=== PATIENT | female | born 1935 | race Caucasian/White ===

== ENCOUNTER 2024-05-15 22:31 | Emergency (ER) | payer OTHER, MEDICAID ==
[~2024-05-15] VITALS: Ht 157.5 cm; Wt 59.0 kg
[2024-05-15 22:31] VITALS: BP 128/58; PULSE 80; RESP 18; TEMP 98.1; O2SAT 98
[2024-05-16] MEDS: ACETAMINOPHEN EXTRA STRENGTH 500 MG TAB PO ONE (01:42)
[2024-05-16 01:45] LABS: BASOPHILS # (AUTO) 0.1 K/uL (0.00-0.22); BASOPHILS % (AUTO) 0.9 % (0.0-2.0); EOSINOPHILS # (AUTO) 0.5 K/uL (0-0.4); EOSINOPHILS % (AUTO) 6.6 % (0.0-4.0); HEMATOCRIT 25.9 % (36-48); HEMOGLOBIN 8.4 g/dL (12.0-16.0); LYMPHOCYTES # (AUTO) 1.5 K/uL (2.5-16.5); LYMPHOCYTES % (AUTO) 21.9 % (20.5-51.1); MEAN CORPUSCULAR HEMOGLOBIN 30 pg (27-31); MEAN CORPUSCULAR HGB CONC 32 g/dL (33-37); MEAN CORPUSCULAR VOLUME 91.1 fL (80-94); MONOCYTES # (AUTO) 0.7 K/uL (0.8-1.0); MONOCYTES % (AUTO) 9.7 % (1.7-9.3); NEUTROPHILS # (AUTO) 4.2 K/uL (1.8-7.7); NEUTROPHILS % (AUTO) 60.9 % (42.2-75.2); PLATELET COUNT (AUTO) 330 K/uL (140-450); RED BLOOD CELL COUNT(AUTO) 2.85 MIL/uL (4.20-5.40); RED CELL DISTRIBUTION WIDTH 13.8 % (11.6-13.7); WHITE BLOOD COUNT (AUTO) 6.9 K/uL (4.8-10.8)
[2024-05-16 01:54] VITALS: O2SAT 98
[2024-05-16 01:59] LABS: ANION GAP 12.5 (8-16); CALCIUM 8.5 mg/dL (8.5-10.1); CHLORIDE 105 mmol/L (98-107); CREATININE 1.8 mg/dL (0.6-1.3); GLUCOSE 112 mg/dL (74-106); POTASSIUM 4.5 mmol/L (3.5-5.1); SODIUM SERUM 140 mmol/L (136-145); UREA NITROGEN, BLOOD 35 mg/dL (7-18)
[2024-05-16] MEDS ORDERED: ACET-10509 PO (04:15)
[2024-05-16 04:30] VITALS: BP 130/53; PULSE 67; RESP 19; TEMP 97.8; O2SAT 98
== END 2024-05-16 04:30 | disposition home or self-care (01) ==
LOC: MED 22:31
DX: R22.42 Localized swelling, mass and lump, left lower limb (principal); Z79.899 Other long term (current) drug therapy
CPT/HCPCS: 36415; 73610; 80048; 85025; 93971; 99284; Q0092